=== PATIENT | female | born 1980 | race Hispanic/Latino ===

== ENCOUNTER 2016-12-17 13:07 | Emergency (ER) | payer SELFPAY ==
[~2016-12-17 13:07] MED LIST: Docusate Sodium PO; Ibuprofen PO; MENT71OI TP; Oxycodone/Acetaminophen PO; Petrolatum,White TOP; TERB250T4 PO
[2016-12-17 13:10] VITALS: BP 133/78; PULSE 109; RESP 16; O2SAT 99
--- NOTE | 2016-12-17 13:35 | ED.REPORT ---
HPI-Eye Problem Date of Service Dec 17, 2016 ED Provider: Jono Diaz DO Pt is a healthy 35 y/o female who presents to the ED c/o right eye pain, redness , and swelling onset one month ago. She describes her pain as a "haziness" over her R eye that does not feel like a scratch. When the symptoms first started, she had a green discharge that went away with the eye drops. Additional symptoms include R eye blurriness, mild light sensitivity, and warmth over the R eye. She states her vision is normal when looking close, but cannot see distant objects. She denies wearing contact lenses or glasses. Pt tried OTC eyedrops and Terramycin, and an allergy medicine without relief. Nursing Notes Stated Complaint: EYE PAIN Chief Complaint: Eye Nursing Notes Reviewed: Yes Allergies: Coded Allergies: No Known Allergies (Unverified Allergy, Unknown, 10/10/13) Scheduled ([Docusate Sodium]) 100 MG CAPSULE 100 MG PO BID ([Petrolatum,White]) 1 APPL/GM JELLY 1 APPL TOP TID Erythromycin Ophth Oint (Erythromycin Ophth Oint) 3.5 Gm Oint...g. 1 APPL OP QID Menthol/Zinc Oxide Oint (Calmoseptine Oint) 71 Gm Oint...g. 71 GM TP QID Terbinafine (Lamisil) 250 Mg Tablet 250 MG PO DAILY Scheduled PRN ([Ibuprofen]) 200 MG TABLET 600 MG PO Q6H PRN PRN For Pain ([Oxycodone/Acetaminophen]) 1 TAB TABLET 1-2 TAB PO Q4H PRN PRN For Moderate Pain General Time Seen by MD: 13:34 Chief Complaint Right eye affected Hx Obtained From: Patient, Daughter, Television Cameraman Arrived By: Walk-in Sudden in Onset?: No Onset Occurred: More than a week ago... (1 month) Symptom Duration: Since onset Progression Since Onset: Constant Location: : Eye right Quality: Painful Severity: Current: Moderate Severity: Maximum: Severe Recent Healthcare: Recent doctor visit Similar Sx Previous: No Past Medical History Past Medical History Endometriosis Past Surgical History Reports: Smoking History Never Smoker Social History Alcohol Use: Denies alcohol use Drug Use: Denies drug use Other Social History: Good social support Ambulatory Status Independent Review of Systems Right Eye: swollen and itching Eyes: Reports: Blurred right, Discharge right, Eye pain right, Photophobia, Redness right Complete sys rev & neg: except as marked. Physical Exam Initial Vital Signs Vital Signs (First) Date Time Temp Pulse Resp B/P Pulse Ox O2 Delivery O2 Flow Rate FiO2 12/17/16 13:10 36.5 109 16 133/78 99 Room Air Initial VS: Reviewed, Vital signs normal Neck: Supple, Full range of motion Respiratory: No respiratory distress Cardiovascular: Intact distal pulses Extremities: Vascular intact, Neuro intact, No swelling, No tenderness Skin: Warm, Dry, No cyanosis Neurologic: Alert, Oriented, Nonfocal Psychiatric: Mood/affect normal, Behavior normal, Normal thought content Head / Eyes: Normocephalic, EOMI Visual acuity in the left eye is 20/25 and right eye is 20/80 R eye: Haziness over cornea Mild conjunctival injection Pain is relieved after eye drops Minimal scattered uptake of fluorescein No obvious abrasion or ulcer No foreign body No consensual photophobia Tonopen ocular pressures: 15, 19, 20 General/Constitutional: Awake, Alert, Cooperative, Not toxic appearing Procedures Slit Lamp Exam Minor cell and flare No foreign body Time: 14:45 Procedure Performed by: ED physician Which Eye: Right Dilating Agent & Anesthesia: Anesthesia: Tetracaine Re-Eval/Medical Decision Med Decision/Clinical Course Patient presents with a rotation. Overall the presentation seems to be limited to the conjunctiva, no obvious corneal ulcer or abrasion is identified. Not consistent with iritis or posterior chamber pathology. Discussed with ophthalmology hone operator who has set up a follow-up appointment for tomorrow. Erythromycin ophthalmic ointment prescribed. Return and follow-up precautions given. Source of Hx: Old records Re-Evaluation/Progress #1: Time of Eval: 14:37 Re-Evaluation/Progress Note: Pt rechecked. Full eye exam performed. Re-Evaluation/Progress #2: Time of Eval: 16:16 Re-Evaluation/Progress Note: Pt rechecked. Informed pt of plan for discharge. Pt understands and agrees with plan for discharge. F/U instructions and RTER warnings given. All questions addressed. Consultation : Referral / Consult Name: MAI PEREZ MD Consulted With: Network Operations Manager Call Returned at: 15:31 Yeast Culture Developer: Will see in office, Agrees with plan Note: Discussed pt's case with head boys golf coach, Dr. Perez. He agrees to plan and agrees to a follow-up appointment. Counseled Regarding: Diagnosis, Need for follow-up, When/why to return to ED Discharge & Departure Primary Impression: Acute right eye pain Disposition: Home Discharge Condition All VS Reviewed: Yes Condition: Stable Patient Instructions: Eye Pain (ED) Additional Instructions: The cause of your symptoms is uncertain but is not immanently dangerous. You have an appointment scheduled at [address] Perez tomorrow. The contact information is below. Take the eyedrops as scheduled. Return to the emergency department for any new or worsening symptoms. Address: [place] [address] Hours: Open today 8AM5PM [employer] TRANSLATE BELOW La causa de dl sntomas es incierta meir no es inmanentemente peligrosa. Tienes cleve yamile programada a las 13:00 con el especialista en ojos Dr. Renetta sutton. La informacin de contacto se encuentra a continuacin. Eagar las gotas de los ojos segn lo programado. Vuelva al departamento de emergencias para detectar sntomas nuevos o que empeoren. Direccin: [address], [place] [address] Horario: Olive rucker 8AM5PM Telfono: Referrals: MAI PEREZ MD Scribe Attestation Portions of this note were transcribed by Lorie Corbett and Brian Cortez. I, Dr. Diaz, personally performed the history, physical exam and medical decision-making; I reviewed and confirmed the accuracy of the information in the transcribed note. copies to: MAI PEREZ MD, Timothy Alicja GAITAN Dec 17, 2016 13:35 Lorie Corbett Dec 17, 2016 13:48 BRIAN CORTEZ Dec 17, 2016 14:15
[2016-12-17] MEDS ORDERED: 0.9% Sodium Chloride Inhalation Solution ONE (13:59)
[2016-12-17] MEDS ORDERED: Tetracaine 0.5% 4 mL Ophthalmic Solution ONE (13:59)
[2016-12-17] MEDS ORDERED: Fluorescein 0.6 mg Ophthalmic Strip ONE (13:59)
[2016-12-17] MEDS ORDERED: ERYT1OIN7 OP (15:55)
[2016-12-17 16:16] VITALS: BP 129/77; PULSE 98; RESP 16; O2SAT 99
== END 2016-12-17 16:18 | disposition home or self-care (01) ==
LOC: SED 13:07
DX: H57.11 Ocular pain, right eye (principal)